=== PATIENT | female | born 1970 | race Two or more races ===

== ENCOUNTER 2024-10-26 21:21 | Emergency (ER) | payer OTHER ==
[~2024-10-26] VITALS: Ht 165.1 cm; Wt 86.2 kg
[2024-10-26] MEDS ORDERED: CEFTRIAXONE SODIUM 1,000 MG VIAL IV ONE (21:30)
[2024-10-26] MEDS ORDERED: KETOROLAC TROMETHAMINE 30 MG VIAL IV ONE (21:30)
[2024-10-26 22:01] LABS: MEAN CELL VOLUME 85.7 fL (80.00-100.00); MEAN CORPUSCULAR HEMOGLOBIN 28.6 pg (27.00-32.0); MEAN CORPUSCULAR HGB CONC 33.3 g/dl (32.0-36.0); PLATELET COUNT 188 K/uL (150-450); RED BLOOD COUNT 4.55 M/uL (4.00-6.00); RED CELL DISTRIBUTION WIDTH 13.8 % (11.5-14.5)
[2024-10-26 22:05] LABS: ERYTHROCYTE SEDIMENTATION RATE 16 mm/hr
[2024-10-26] MEDS ORDERED: DUI500 PO (22:31)
[2024-10-26] MEDS ORDERED: DICLOFENAC SODI75 MG PO (22:31)
== END 2024-10-26 22:34 | disposition home or self-care (01) ==
LOC: ER 21:21
PROVIDERS: General Practice
DX: L03.114 Cellulitis of left upper limb (principal); R21 Rash and other nonspecific skin eruption; Z88.0 Allergy status to penicillin